=== PATIENT | male | born 1990 | race Caucasian/White ===

== ENCOUNTER 2017-07-02 16:56 | Emergency (ER) | payer BC ==
[2017-07-02 17:51] VITALS: BP 112/64
[2017-07-02] MEDS ORDERED: Tetan/Diph/Pertus SYR(Tdap)* 0.5 ML SYR(BOOSTRIX) use SYR IM ONE (18:42)
--- NOTE | 2017-07-02 19:16 | ED ---
Laceration/Wound HPI - HPI Summary HPI Summary: 26 yo WM p/w right flexor portion forearm laceration s/p scrape from handling metal scraps into a pile at home. Last Tdap about 5 yrs ago, bleeding stopped. - History of Current Complaint Stated Complaint: LACERATION Time Seen by Provider: 07/02/17 17:59 Hx Obtained From: Patient Onset/Duration: Sudden Onset Aggravating: Nothing Alleviating: Nothing Onset Severity: Mild Current Severity: Mild Pain Intensity: 0 - Allergy/Home Medications Allergies/Adverse Reactions: Allergies Allergy/AdvReac Type Severity Reaction Status Date / Time No Known Allergies Allergy Verified 07/02/17 17:51 Home Medications: Home Medications NK [No Home Medications Reported] 07/02/17 [History Confirmed 07/02/17] PMH/Surg Hx/FS Hx/Imm Hx Previously Healthy: Yes Endocrine/Hematology History: Denies: Hx Diabetes, Hx Thyroid Disease Cardiovascular History: Denies: Hx Hypertension Respiratory History: Denies: Hx Asthma - Surgical History Surgery Procedure, Year, and Place: Left Hand Artery and Nerve Repair, 2008, [facility] [place] Infectious Disease History: No Infectious Disease History: Denies: Hx Human Immunodeficiency Virus (HIV), Traveled Outside the in Last 30 Days - Family History Known Family History: Positive: None - Social History Alcohol Use: None Substance Use Type: Reports: None Smoking Status (MU): Light Every Day Tobacco Smoker Type: Cigarettes Amount Used/How Often: 5-6 cigarettes daily Length of Time of Smoking/Using Tobacco: 4 years Have You Smoked in the Last Year: Yes Review of Systems Constitutional: Negative Eyes: Negative ENT: Negative Cardiovascular: Negative Respiratory: Negative Gastrointestinal: Negative Genitourinary: Negative Musculoskeletal: Negative Skin: Other Positive: Other - right forearm laceration All Other Systems Reviewed And Are Negative: Yes Physical Exam Triage Information Reviewed: Yes Vital Signs On Initial Exam: Initial Vitals Temp Pulse Resp BP Pulse Ox 36.1 C 67 18 112/64 100 07/02/17 17:47 07/02/17 17:47 07/02/17 17:47 07/02/17 17:47 07/02/17 17:47 Vital Signs Reviewed: Yes Appearance: Positive: Well-Appearing Skin: Positive: Warm, Other - clean linear diagonal forearm laceration on flexor surface of right forearm size about 2.5cm, neg bleed Head/Face: Positive: Normal Head/Face Inspection Eyes: Positive: Normal ENT: Positive: Normal ENT inspection Neck: Positive: Supple Respiratory/Lung Sounds: Positive: Clear to Auscultation Cardiovascular: Positive: Normal Musculoskeletal: Positive: Normal Neurological: Positive: Normal Psychiatric: Positive: Normal Procedures - Laceration/Wound Repair 1 Location: upper extremity - right forearm Description: Linear Betadine Prep?: No - copiously irrigated with saline Laceration/Wound Explored: clean Closure: Skin Adhesive, Single Layer Debridement: minimal Layer Closure?: No Sterile Dressing Applied?: No - tissue adhesive driedno need for bulky dressing Diagnostics - Vital Signs Vital Signs Temp Pulse Resp BP Pulse Ox 07/02/17 17:47 36.1 C 67 18 112/64 100 - Laboratory Lab Statement: Any lab studies that have been ordered have been reviewed, and results considered in the medical decision making process. Laceration Repair Course/Dx - Course Course Of Treatment: Tdap booster administered, dermabond repair of right forearm laceration - Clinical Impression Provider Diagnoses: Laceration of skin of right forearm Discharge - Sign-Out/Discharge Documenting (check all that apply): Discharge/Admit/Transfer - Discharge Plan Condition: Stable Disposition: HOME Patient Education Materials: Laceration (ED), Skin Adhesive Care (ED) Additional Instructions: Keep wound dry - Billing Disposition and Condition Condition: STABLE Disposition: HOME
== END 2017-07-02 19:14 | disposition home or self-care (01) ==
LOC: UCEAST 16:56
DX: S51.811A Laceration without foreign body of right forearm, initial encounter (principal); W26.8XXA Contact with other sharp object(s), not elsewhere classified, initial encounter; Y93.89 Activity, other specified; Y92.008 Other place in unspecified non-institutional (private) residence as the place of occurrence of the external cause; Z23 Encounter for immunization; F17.210 Nicotine dependence, cigarettes, uncomplicated
CPT/HCPCS: 12001; 90715; 99211; 99212; G0463

== ENCOUNTER 2017-10-12 09:17 | Emergency (ER) | payer BC ==
[2017-10-12 09:50] VITALS: BP 126/62
[2017-10-12] MEDS ORDERED: Lidocaine 1%* 5 ML VIAL INJ ONE (10:14)
--- NOTE | 2017-10-12 10:54 | UC ---
Skin Complaint HPI - HPI Summary HPI Summary: 26-year-old male with a complaint of right arm pit swelling. It started 5 days ago it's been getting bigger. It's painful with motion of the arm and with palpation. It's reread it did not drain anything. Patient stopped using deodorant because of the swelling. He's been taking his penicillin from a prior infection for several days and he took doxycycline last night. No fevers or chills feels well otherwise. - History of Current Complaint Chief Complaint: UCSkin Time Seen by Provider: 10/12/17 10:08 Stated Complaint: RIGHT UNDERARM LUMP Pain Intensity: 2 - Allergy/Home Medications Allergies/Adverse Reactions: Allergies Allergy/AdvReac Type Severity Reaction Status Date / Time No Known Allergies Allergy Verified 10/12/17 09:44 Home Medications: Home Medications Ibuprofen TAB* [Advil TAB*] 600 mg PO Q6H PRN 10/12/17 [History Confirmed ] Review of Systems Constitutional: Negative Skin: Rash - SEE HPI Eyes: Negative ENT: Negative Respiratory: Negative Cardiovascular: Negative Motor: Negative Neurovascular: Negative Musculoskeletal: Negative Neurological: Negative Is Patient Immunocompromised?: No All Other Systems Reviewed And Are Negative: Yes PMH/Surg Hx/FS Hx/Imm Hx Previously Healthy: Yes Other Endocrine History: NO DM Other Cardiovascular History: NO CAD - Surgical History Surgical History: Yes Surgery Procedure, Year, and Place: [place] [facility] [place] - Family History Known Family History: Positive: Cardiac Disease Family History: FHX LACERATIONS - Social History Alcohol Use: None Substance Use Type: Marijuana Substance Use Comment - Amount & Last Used: occasional Smoking Status (MU): Light Every Day Tobacco Smoker Type: Cigarettes Amount Used/How Often: 5-6 cigarettes daily Length of Time of Smoking/Using Tobacco: 4 years Have You Smoked in the Last Year: Yes Household Exposure Type: Cigarettes - Immunization History Most Recent Influenza Vaccination: no Most Recent Tetanus Shot: 2012 Physical Exam Triage Information Reviewed: Yes Appearance: Well-Appearing, No Pain Distress Vital Signs: Initial Vital Signs Temp 98.2 F 10/12/17 09:45 Pulse 58 10/12/17 09:45 Resp 14 10/12/17 09:45 BP 126/62 10/12/17 09:45 Pulse Ox 100 10/12/17 09:45 Vital Signs Reviewed: Yes Eye Exam: Normal ENT Exam: Normal Neck: Positive: Supple Respiratory: Positive: Lungs clear Cardiovascular: Positive: RRR Musculoskeletal Exam: Normal Musculoskeletal: Positive: Strength Intact, ROM Intact Neurological Exam: Normal Psychological Exam: Normal Skin Exam: Other - In the right axilla, there is a 2 cm diameter swelling that is erythematous and tender to touch. Course/Dx - Course Course Of Treatment: Wound was packed with quarter-inch GAUZE. Augmentin prescribed. Follow up with primary care doctor if not completely improved. Recheck sooner if worse. - Diagnoses Provider Diagnoses: RIGHT AXILLA FOLLICULITIS WITH ABSCESS Discharge - Sign-Out/Discharge Documenting (check all that apply): Patient Departure All imaging exams completed and their final reports reviewed: No Studies - Discharge Plan Condition: Stable Disposition: HOME Prescriptions: Amoxicillin/Clavulanate TAB* [Augmentin TAB 875*] 875 mg PO BID #20 tab Patient Education Materials: Folliculitis (ED) [place] [facility] [place]] Additional Instructions: FOLLOW UP WITH YOUR DOCTOR IF NOT COMPLETELY IMPROVED. GET RECHECKED FOR ANY WORSENING OF YOUR CONDITION; PAIN, SPREAD OF INFECTION OR QUESTIONS OR CONCERNS. - Billing Disposition and Condition Condition: STABLE Disposition: Home
== END 2017-10-12 10:58 | disposition home or self-care (01) ==
LOC: UCCORT 09:17
DX: L73.9 Follicular disorder, unspecified (principal); L02.411 Cutaneous abscess of right axilla; B95.61 Methicillin susceptible Staphylococcus aureus infection as the cause of diseases classified elsewhere; F17.210 Nicotine dependence, cigarettes, uncomplicated
CPT/HCPCS: 87070; 87077; 87186; 87205; 87640; 87641; 99212; G0463

== ENCOUNTER 2018-10-28 16:00 | Emergency (ER) | payer BC ==
[2018-10-28 17:13] VITALS: BP 106/62
--- NOTE | 2018-10-28 17:50 | UC ---
Skin Complaint HPI - HPI Summary HPI Summary: Pt presents with c/o left side jaw pain that began this morning. Pt denies injury or hx of TMJ. Pt states he "occasionally" has this happen but that it resolves by itself. Pt states that today the pain and stiffness was mad it difficult to open his mouth fully throughout the entire day. Pt also has c/o of sores on top of his head that have been there "for a long time" - History of Current Complaint Chief Complaint: UCGeneralIllness Time Seen by Provider: 10/28/18 17:37 Stated Complaint: JAW CONCERN/SKIN COMPLAINT Hx Obtained From: Patient Onset/Duration: Sudden Onset - jaw, Gradual Onset - sores on head, Still Present Skin Exposure Onset/Duration: Hours Ago - jaw, Days Ago - sores Timing: Constant Onset Severity: Moderate Current Severity: Mild Pain Intensity: 2 Location: Discrete - left side of jaw and sores or on left posterior parietal and right poseterior parietal., Other - left side of jaw Character: Pain, Redness Aggravating Factor(s): Touch, Other - opening mouth Alleviating Factor(s): Nothing Associated Signs & Symptoms: Positive: Tenderness - Allergy/Home Medications Allergies/Adverse Reactions: Allergies Allergy/AdvReac Type Severity Reaction Status Date / Time No Known Allergies Allergy Verified 10/28/18 17:03 PMH/Surg Hx/FS Hx/Imm Hx Previously Healthy: Yes - Surgical History Surgical History: Yes Surgery Procedure, Year, and Place: Left Hand Artery and Nerve Repair, 2008, [facility] – [place] DENTAL EXTRACTIONS - Family History Known Family History: Positive: Cardiac Disease Family History: FHX LACERATIONS - Social History Occupation: Employed Full-time Lives: With Family Alcohol Use: None Substance Use Type: Marijuana Substance Use Comment - Amount & Last Used: ONCE A MONTH Smoking Status (MU): Current Some Day Smoker Type: Cigarettes, eCigarettes Amount Used/How Often: 5-6 cigarettes daily Length of Time of Smoking/Using Tobacco: 4 years Have You Smoked in the Last Year: Yes Household Exposure Type: Cigarettes - Immunization History Most Recent Influenza Vaccination: no Most Recent Tetanus Shot: 2012 Review of Systems All Other Systems Reviewed And Are Negative: Yes Constitutional: Positive: Negative Skin: Positive: Other - open wound on scalp Eyes: Positive: Negative ENT: Positive: Other - jaw pain Respiratory: Positive: Negative Cardiovascular: Positive: Negative Gastrointestinal: Positive: Negative Genitourinary: Positive: Negative Motor: Positive: Negative Neurovascular: Positive: Negative Musculoskeletal: Positive: Myalgia - left side of jaw Neurological: Positive: Negative Psychological: Positive: Negative Is Patient Immunocompromised?: No Physical Exam Triage Information Reviewed: Yes Appearance: Well-Appearing Vital Signs: Initial Vital Signs Temp 98.9 F 10/28/18 17:05 Pulse 82 10/28/18 17:05 Resp 18 10/28/18 17:05 BP 106/62 10/28/18 17:05 Pulse Ox 100 10/28/18 17:05 Vital Signs Reviewed: Yes Eye Exam: Normal ENT: Positive: Hearing grossly normal Dental: Positive: Other: - left side Neck exam: Normal Neck: Positive: Supple Respiratory Exam: Normal Musculoskeletal Exam: Normal Neurological Exam: Normal Psychological Exam: Normal Skin Exam: Other - two dime side ope wounds on scalp with greenish discharge and c/o tenderness Course/Dx - Differential Diagnoses - Skin Complaint Differential Diagnoses: Abscess, Cellulitis - Diagnoses Provider Diagnosis: Jaw pain, Infected wound Discharge ED - Sign-Out/Discharge Documenting (check all that apply): Patient Departure All imaging exams completed and their final reports reviewed: No Studies - Discharge Plan Condition: Stable Disposition: HOME Prescriptions: Sulfamethox/Trimethoprim DS* [Bactrim DS 800/160 TAB*] 1 tab PO Q12H #14 tab Patient Education Materials: Wound Infection (ED), Temporomandibular Disorder ( ED) Referrals: [facility] PHYS[facility]IAN REFERRAL [Outside] No Primary Care Phys,NOPCP [Primary Care Provider] - - Billing Disposition and Condition Condition: STABLE Disposition: Home
== END 2018-10-28 17:58 | disposition home or self-care (01) ==
LOC: UCCORT 16:00
DX: R68.84 Jaw pain (principal); S01.00XA Unspecified open wound of scalp, initial encounter; L08.9 Local infection of the skin and subcutaneous tissue, unspecified; X58.XXXA Exposure to other specified factors, initial encounter; Y92.9 Unspecified place or not applicable; F17.210 Nicotine dependence, cigarettes, uncomplicated; F17.290 Nicotine dependence, other tobacco product, uncomplicated
CPT/HCPCS: 99212; G0463